=== PATIENT | male | born 2000 | race Hispanic/Latino ===

== ENCOUNTER 2022-01-15 08:53 | Emergency (ER) | payer OTHER ==
[~2022-01-15] VITALS: Ht 177.8 cm; Wt 79.4 kg
[2022-01-15] MEDS ORDERED: IBUP-1493 PO (10:19)
[2022-01-15 10:45] VITALS: BP 127/69
== END 2022-01-15 10:52 | disposition home or self-care (01) ==
LOC: EDH 08:53
DX: U07.1 COVID-19 (principal); Z90.89 Acquired absence of other organs
CPT/HCPCS: 87635; 99283; C9803